=== PATIENT | female | born 1970 | race Caucasian/White ===

== ENCOUNTER → 2020-03-19 | Outpatient (CLI) | payer MEDICARE, MEDICAID ==
[~2020-03-19] VITALS: Ht 165.1 cm; Wt 87.7 kg
[~2020-03-19] MED LIST: LIDOCAINE 1% INJ 20 ML 20 ML VIAL INJ ONE; LIDOCAINE 1% INJ 20 ML 20 ML VIAL ONE
--- NOTE | 2020-03-19 13:44 | Diagnostic Imaging Report ---
INDICATION: Right breast consultations. Patient present for stereotactic biopsy. Patient was brought to the stereotactic suite and placed in a chair sitting upright position. The right breast was positioned lateral medial. The calcifications in the outer right breast posterior depth stereotactically targeted. The lateral right breast was then prepped and draped in usual sterile fashion. Small amount of 1% lidocaine utilized for local anesthesia. A 8 gauge needle was advanced into the right breast in a lateral medial fashion and placed per stereotactic coordinates. 4 core biopsies were obtained utilizing a vacuum-assisted device. A specimen radiograph only shows minimal calcifications. Therefore, for additional biopsies were obtained utilizing a vacuum-assisted device. A 2nd specimen radiograph does show calcifications within samples labeled #10 and 11. Marker clip was then deployed. Needle was removed and hemostasis was obtained. Follow-up 2D cc and LM mammography shows a marker clip in the outer right breast. IMPRESSION: Right breast stereotactic biopsy, as described. Pathology results are currently pending. Dictated by: Dictated on workstation # [id number]
== END ==
LOC: RAD 09:25
PROVIDERS: ATTEND Surgery
DX: N60.21 Fibroadenosis of right breast (principal); R92.0 Mammographic microcalcification found on diagnostic imaging of breast
CPT/HCPCS: 19081